=== PATIENT | female | born 2000 | race Caucasian/White ===

== ENCOUNTER 2020-10-07 13:02 | Emergency (ER) | payer SELFPAY | END 2020-10-07 13:26 | disposition home or self-care (01) | LOC: CSHERS 13:02 | DX: M25.511 Pain in right shoulder (principal); K21.9 Gastro-esophageal reflux disease without esophagitis; F17.290 Nicotine dependence, other tobacco product, uncomplicated; W05.1XXA Fall from non-moving nonmotorized scooter, initial encounter | CPT/HCPCS: 99283 ==

== ENCOUNTER 2021-05-25 08:48 | Emergency (ER) | payer SELFPAY ==
[2021-05-25] MEDS ORDERED: diphenhydrAMINE 50 MG/ML VIAL ONE (09:52)
[2021-05-25] MEDS ORDERED: Metoclopramide HCl 10 MG/2 ML VIAL ONE (09:52)
[2021-05-25 19:55] LABS: SARS-CoV-2 PCR by NAA Not Detected (NotDetected)
== END 2021-05-25 12:20 | disposition home or self-care (01) ==
LOC: CSHERS 08:48
DX: R51.9 Headache, unspecified (principal); K21.9 Gastro-esophageal reflux disease without esophagitis; F17.290 Nicotine dependence, other tobacco product, uncomplicated; Z79.899 Other long term (current) drug therapy; Z20.822 Contact with and (suspected) exposure to COVID-19
CPT/HCPCS: 96365; 96375; J1200; J2765; U0003; U0005

== ENCOUNTER 2022-12-16 08:43 | Emergency (ER) | payer SELFPAY ==
[2022-12-16 09:34] LABS: #Eosinphils 0.1 10x3/uL (0.0-0.5); #Monocytes 0.4 10x3/uL (0.0-1.1); %Basophils 0.4 % (0.0-2.0); %Eosinophils 0.9 % (0.0-6.0); %Lymphocytes 25.2 % (18.0-47.0); %Monocytes 4.4 % (0.0-10.0); %Neutrophils 67.3 % (40.0-75.0); Hemoglobin 12.3 g/dL (12.0-15.5); Mean Corpuscular HGB CONC 33.2 g/dL (32.0-36.0); Mean Corpuscular Hemoglobin 29.1 pg (27.0-33.0); Mean Corpuscular Volume 87.7 fl (81.6-98.3); Platelet Count 210 10x3/uL (150-450); RBC Distribution Width 12.4 % (11.5-14.5); Red Blood Cell (RBC) Count 4.23 10x6/uL (3.90-5.03); White Blood Cell (WBC) Count 8.9 10x3/uL (3.5-10.5)
[2022-12-16 09:51] LABS: ALT (SGPT) 22 U/L (8-55); AST (SGOT) 18 U/L (5-34); Albumin 4.2 g/dL (3.5-5.0); Alkaline Phosphatase 82 U/L (40-110); Anion Gap 13 mmol/L (10-20); BUN (Urea Nitrogen) 7 mg/dL (7.0-18.7); Bilirubin, Total 0.5 mg/dL (0.2-1.2); Calc. Creatinine Clearance 0 mL/min (70-130); Calcium 9.2 mg/dL (7.8-10.44); Carbon Dioxide 25 mmol/L (22-29); Chloride 105 mmol/L (98-107); Estimated GFR 116; Globulin 3.1 g/dL (2.4-3.5); Glucose 100 mg/dL (70-105); Potassium 4.1 mmol/L (3.5-5.1); Protein, Total 7.3 g/dL (6.0-8.3); Sodium 139 mmol/L (136-145)
[2022-12-16 09:52] LABS: BHCG - Serum Negative (NEGATIVE); Pregs Control Background? CLEAR/WHITE (CLR/WHITE); Pregs Control Bar Appear? YES (CONTROL BAR)
[2022-12-16 10:02] LABS: Bilirubin Neg (Negative); Blood, Urine Negative (Negative); Clarity Clear (Clear); Glucose, Urine (Dipstick) Normal (Negative); Ketone, Urine Negative (Negative); Leukocyte 25 (Negative); Nitrite Negative (Negative); Protein, Urine (Dipstick) Negative (Neg-Trace); Urobilinogen Normal mg/dL (Less than 2)
[2022-12-16 10:20] LABS: Bacteria/HPF 1+ HPF (None Seen); CAUTI Indications for Culture Dysuria,urgency,freq; RBC/HPF 0-3 HPF (0-3); WBC/HPF 0-3 HPF (0-3)
[2022-12-16 10:22] LABS: Urine Culture Reflex No No
[2022-12-16] MEDS ORDERED: Ondansetron PF 4 MG/2 ML Vial ONE (10:49)
== END 2022-12-16 12:05 | disposition home or self-care (01) ==
LOC: CSHERS 08:43
DX: R11.10 Vomiting, unspecified (principal); T18.9XXA Foreign body of alimentary tract, part unspecified, initial encounter; F17.290 Nicotine dependence, other tobacco product, uncomplicated
CPT/HCPCS: 71045; 74018; 80053; 81001; 84703; 85025; 96374; J2405

== ENCOUNTER 2024-05-07 16:37 | Emergency (ER) | payer BC, SELFPAY ==
[~2024-05-07 16:37] MED LIST: Iopamidol 300 61% 100 ML VIAL FS ONE
[2024-05-07] MEDS ORDERED: Meclizine HCl 25 MG TAB ONE (17:16)
[2024-05-07] MEDS ORDERED: Ondansetron PF 4 MG/2 ML Vial ONE (17:16)
[2024-05-07] MEDS ORDERED: Morphine 4 MG/ML VIAL ONE (17:16)
[2024-05-07 17:58] LABS: #Basophils 0.04 10x3/uL (0.0-0.2); #Eosinophils 0.03 10x3/uL (0.0-0.5); #Monocytes 0.43 10x3/uL (0.0-1.1); #Neutrophils 6.56 10x3/uL (1.5-8.4); %Basophils 0.4 % (0.0-2.0); %Eosinophils 0.3 % (0.0-6.0); %Lymphocytes 25.9 % (18.0-47.0); %Monocytes 4.4 % (0.0-10.0); %Neutrophils 67.4 % (40.0-75.0); Hematocrit 37.2 % (34.9-44.5); Hemoglobin 12.3 g/dL (12.0-15.5); Mean Corpuscular HGB CONC 33.1 g/dL (32.0-36.0); Mean Corpuscular Hemoglobin 29.1 pg (27.0-33.0); Mean Corpuscular Volume 87.9 fL (81.6-98.3); Mean Platelet Volume 9.5 fL (7.4-10.4); Platelet Count 211 10x3/uL (150-450); RBC Distribution Width 13.5 % (11.5-14.5); Red Blood Cell (RBC) Count 4.23 10x6/uL (3.90-5.03); White Blood Cell (WBC) Count 9.8 10x3/uL (3.5-10.5)
[2024-05-07 18:12] LABS: ALT (SGPT) 46 U/L (8-55); AST (SGOT) 35 U/L (5-34); Albumin 4.1 g/dL (3.5-5.0); Alkaline Phosphatase 61 U/L (40-110); Anion Gap 15 mmol/L (10-20); BUN (Urea Nitrogen) 5 mg/dL (7.0-18.7); Calc. Creatinine Clearance 0 mL/min (70-130); Calcium 9.6 mg/dL (7.8-10.44); Carbon Dioxide 23 mmol/L (22-29); Chloride 103 mmol/L (98-107); Estimated GFR 117; Globulin 3.6 g/dL (2.4-3.5); Glucose 98 mg/dL (70-105); Lipase 10 U/L (8-78); Potassium 3.6 mmol/L (3.5-5.1); Protein, Total 7.7 g/dL (6.0-8.3); Sodium 137 mmol/L (136-145)
[2024-05-07] MEDS ORDERED: Diazepam 10 MG/2 ML SYRINGE ONE (19:20)
[2024-05-07 19:30] LABS: Bilirubin Neg (Negative); Blood, Urine Negative (Negative); Clarity Clear (Clear); Glucose, Urine (Dipstick) Normal (Negative); Ketone, Urine Negative (Negative); Leukocyte Negative (Negative); Nitrite Negative (Negative); Protein, Urine (Dipstick) Negative (Neg-Trace); Specific Gravity, Urine 1.005 (1.005-1.030); Urobilinogen Normal mg/dL (Less than 2)
[2024-05-07 19:31] LABS: Pregnancy Test - Urine (BHCG) Negative (Negative); Pregu Control Background? CLEAR/WHITE (CLR/WHITE); Pregu Control Bar Appear? YES (CONTROL BAR); Specific Gravity 1.005 (1.002-1.036)
[2024-05-07 20:26] LABS: Bacteria/HPF None Seen HPF (None Seen); CAUTI Indications for Culture Pelvic or flank pain; RBC/HPF 0-3 HPF (0-3); Squamous Epithelial 0-3 HPF (0-3); WBC/HPF 0-3 HPF (0-3)
[2024-05-07 20:28] LABS: Urine Culture Reflex No No
== END 2024-05-07 21:08 | disposition home or self-care (01) ==
LOC: CSHERS 16:37
DX: R42 Dizziness and giddiness (principal); R10.9 Unspecified abdominal pain; F17.290 Nicotine dependence, other tobacco product, uncomplicated
CPT/HCPCS: 74177; 80053; 81001; 81025; 83690; 85025; 93005; 96374; 96375; J2272; J2405; J3360; Q9967

== ENCOUNTER 2024-07-16 21:34 | Observation (INO) | payer BC, OTHER ==
[~2024-07-16 21:34] MED LIST changes: -Iopamidol 300 61% 100 ML VIAL FS ONE; +Iopamidol 370 76% 100 ML VIAL ONE
[2024-07-16 22:30] LABS: #Basophils 0.06 10x3/uL (0.0-0.2); #Eosinophils 0.13 10x3/uL (0.0-0.5); #Monocytes 0.46 10x3/uL (0.0-1.1); #Neutrophils 5.88 10x3/uL (1.5-8.4); %Basophils 0.6 % (0.0-2.0); %Eosinophils 1.3 % (0.0-6.0); %Lymphocytes 31.6 % (18.0-47.0); %Monocytes 4.7 % (0.0-10.0); Hematocrit 38.2 % (34.9-44.5); Hemoglobin 12.8 g/dL (12.0-15.5); Mean Corpuscular HGB CONC 33.5 g/dL (32.0-36.0); Mean Corpuscular Volume 86.4 fL (81.6-98.3); Mean Platelet Volume 9.6 fL (7.4-10.4); Platelet Count 257 10x3/uL (150-450); RBC Distribution Width 13.5 % (11.5-14.5); Red Blood Cell (RBC) Count 4.42 10x6/uL (3.90-5.03); White Blood Cell (WBC) Count 9.81 10x3/uL (3.5-10.5)
[2024-07-16 22:49] LABS: Chloride 104 mmol/L (98-107); Potassium 3.8 mmol/L (3.5-5.1); Sodium 140 mmol/L (136-145)
[2024-07-16 23:01] LABS: Troponin I Less than 0.010 ng/mL (< 0.028)
[2024-07-16 23:11] LABS: ALT (SGPT) 53 U/L (8-55); AST (SGOT) 34 U/L (5-34); Albumin 4.4 g/dL (3.5-5.0); Alkaline Phosphatase 69 U/L (40-110); Anion Gap 15 mmol/L (10-20); BUN (Urea Nitrogen) 7 mg/dL (7.0-18.7); Bilirubin, Total 0.6 mg/dL (0.2-1.2); Calc. Creatinine Clearance 0 mL/min (70-130); Calcium 9.5 mg/dL (7.8-10.44); Carbon Dioxide 25 mmol/L (22-29); Estimated GFR 115; Globulin 3.2 g/dL (2.4-3.5); Glucose 94 mg/dL (70-105); Protein, Total 7.6 g/dL (6.0-8.3)
[2024-07-17 00:38] LABS: Troponin I Less than 0.010 ng/mL (< 0.028)
[2024-07-17 00:46] LABS: Bilirubin Neg (Negative); Blood, Urine Negative (Negative); Glucose, Urine (Dipstick) Normal (Negative); Ketone, Urine Negative (Negative); Leukocyte 100 (Negative); Nitrite Negative (Negative); Protein, Urine (Dipstick) 15 mg/dl (Neg-Trace); Specific Gravity, Urine 1.015 (1.005-1.030); Urobilinogen Normal mg/dL (Less than 2)
[2024-07-17 00:53] LABS: Amphetamine Not Detected (NotDetected); Barbiturates Screen Not Detected (NotDetected); Benzodiazepine Screen Detected (NotDetected); Cocaine Metabolite Screen Detected (NotDetected); Methadone Not Detected (NotDetected); Methamphetamine Not Detected (NotDetected); Opiate Screen Not Detected (NotDetected); Oxycodone Screen Not Detected (NotDetected); Phencyclidine (PCP) Not Detected (NotDetected); THC/Cannabinoid Screen Detected (NotDetected); Tricyclic Screen Detected (NotDetected)
[2024-07-17 00:56] LABS: Clarity Slightly Cloudy (Clear)
[2024-07-17 01:15] LABS: Bacteria/HPF 2+ HPF (None Seen); CAUTI Indications for Culture Pelvic or flank pain; RBC/HPF None Seen HPF (0-3)
[2024-07-17 01:16] LABS: Mucous/LPF Rare LPF (<2+)
[2024-07-17 01:17] LABS: Urine Culture Reflex No No
[2024-07-17] MEDS ORDERED: hydrALAZINE 20 MG/ML VIAL SLOW IVP PRN (02:47)
[2024-07-17] MEDS ORDERED: Ondansetron PF 4 MG/2 ML Vial IVP PRN (02:50)
[2024-07-17] MEDS ORDERED: traMADol HCl 50 MG TAB PO PRN (02:50)
[2024-07-17] MEDS ORDERED: Acetaminophen 325 MG TAB PO PRN (02:50)
[2024-07-17] MEDS ORDERED: Ondansetron ODT 4 MG TAB PO PRN (02:50)
[2024-07-17 02:58] LABS: Troponin I Less than 0.010 ng/mL (< 0.028)
[2024-07-17 03:40] LABS: #Basophils 0.07 10x3/uL (0.0-0.2); #Eosinophils 0.17 10x3/uL (0.0-0.5); #Monocytes 0.59 10x3/uL (0.0-1.1); %Basophils 0.6 % (0.0-2.0); %Eosinophils 1.6 % (0.0-6.0); %Lymphocytes 34.7 % (18.0-47.0); %Monocytes 5.4 % (0.0-10.0); %Neutrophils 56.2 % (40.0-75.0); Hemoglobin 11.6 g/dL (12.0-15.5); Mean Corpuscular HGB CONC 34.1 g/dL (32.0-36.0); Mean Corpuscular Hemoglobin 29.6 pg (27.0-33.0); Mean Corpuscular Volume 86.7 fL (81.6-98.3); Mean Platelet Volume 9.6 fL (7.4-10.4); Platelet Count 231 10x3/uL (150-450); RBC Distribution Width 13.7 % (11.5-14.5); Red Blood Cell (RBC) Count 3.92 10x6/uL (3.90-5.03); White Blood Cell (WBC) Count 10.86 10x3/uL (3.5-10.5)
[2024-07-17 03:55] LABS: ALT (SGPT) 46 U/L (8-55); AST (SGOT) 28 U/L (5-34); Albumin 3.7 g/dL (3.5-5.0); Alkaline Phosphatase 61 U/L (40-110); Anion Gap 13 mmol/L (10-20); BUN (Urea Nitrogen) 7 mg/dL (7.0-18.7); Bilirubin, Total 0.6 mg/dL (0.2-1.2); Calc. Creatinine Clearance 0 mL/min (70-130); Carbon Dioxide 25 mmol/L (22-29); Cardiac Risk 4.2 (Less than 4.5); Chloride 104 mmol/L (98-107); Cholesterol 168 mg/dl (< 200 Desired); Estimated GFR 115; Globulin 3.1 g/dL (2.4-3.5); Glucose 94 mg/dL (70-105); HDL Cholesterol 40 mg/dL (>60 Neg Risk); LDL Cholesterol, Calculated 104 mg/dL; Potassium 3.8 mmol/L (3.5-5.1); Protein, Total 6.8 g/dL (6.0-8.3); Sodium 138 mmol/L (136-145); Triglycerides 118 mg/dL (Less than 150)
[2024-07-17 05:21] VITALS: BMI 39.8
[2024-07-17 08:52] VITALS: BP 148/80; TEMP 98.4
[2024-07-17] MEDS: hydrOXYzine 25 MG TAB PO SCH (08:59)
[2024-07-17] MEDS: Famotidine 20 MG TAB PO SCH (08:59)
[2024-07-17] MEDS: Enoxaparin 40 MG (0.4 mL) SYRINGE SC SCH (09:01)
[2024-07-17] MEDS: DULoxetine 30 MG CAP PO SCH (09:03)
[2024-07-17 12:09] VITALS: BMI 39.8
[2024-07-17] MEDS ORDERED: Atorvastatin Calcium 40 MG TAB PO SCH (21:00)
[2024-07-17] MEDS ORDERED: QUEtiapine 100 MG TAB PO SCH (21:00)
== END 2024-07-17 16:00 | disposition home or self-care (01) ==
LOC: CSHERS 21:34 → CSHTELE 07-17 02:42
PROVIDERS: ADMIT Internal Medicine; ATTEND Family Medicine
PROC: B246YZZ Ultrasonography of Right and Left Heart using Other Contrast (ICD-10-PCS; principal; 2024-07-17)
DX: R53.1 Weakness (principal); K58.9 Irritable bowel syndrome, unspecified; F41.9 Anxiety disorder, unspecified; F32.A Depression, unspecified; F43.10 Post-traumatic stress disorder, unspecified; K21.9 Gastro-esophageal reflux disease without esophagitis; F17.290 Nicotine dependence, other tobacco product, uncomplicated; Z79.899 Other long term (current) drug therapy
CPT/HCPCS: 36415; 70496; 70498; 70551; 71045; 80053; 80061; 80306; 80307; 81001; 84484; 85025; 93005; 93010; 93306; G0378; J1650; Q9967